=== PATIENT | male | born 1985 | race African-American/Black ===

== ENCOUNTER 2018-12-05 08:01 | Emergency (ER) | payer OTHER, SELFPAY ==
[2018-12-05 08:06] VITALS: BP 136/89; PULSE 86; RESP 18; TEMP 37.3; O2SAT 96; BMI 32.1
--- NOTE | 2018-12-05 08:16 | ED.URI ---
HPI - URI/Sore Throat General Chief Complaint: Upper Respiratory Symptoms Stated Complaint: PAIN ALL OVER,SORE THROAT Time Seen by Provider: 12/05/18 08:07 Source: patient and RN notes reviewed Mode of arrival: ambulatory Limitations: no limitations History of Present Illness HPI Narrative: Patient is a 33-year-old male presenting with sore throat and body aches ongoing for the last 3 days. Progressively getting worse. He is also complaining of left ear pain. He is currently afebrile and did not take any antipyretics prior to arrival. He is able to swallow and manage his secretions but does have pain. Influenza up-to-date. MD Complaint: fever, cough and sore throat Onset (ago): day(s) (3) Relieving factors: nothing Exacerbating factors: nothing Related Data Home Medications Medication Instructions Recorded Confirmed metoprolol succinate 50 mg PO DAILY 12/05/18 12/05/18 Previous Rx's Medication Instructions Recorded amoxicillin 500 mg PO BID #14 cap 12/05/18 Allergies Allergy/AdvReac Type Severity Reaction Status Date / Time No Known Drug Allergies Allergy Verified 12/05/18 08:16 Review of Systems Review of Systems ROS Unobtainable: All systems reviewed & are unremarkable except as noted in HPI and below Constitutional Reports body ache(s) and Reports fever(s) Eyes Denies change in vision, Denies eye discharge, Denies irritation and Denies loss of vision ENT Ears, Nose, Mouth, and Throat: Reports as per HPI, Reports otalgia ( Left) and Reports sore throat Cardiovascular Denies chest pain, Denies irregular heart rhythm, Denies lightheadedness, Denies palpitations, Denies dyspnea, Denies dyspnea on exertion and Denies orthopnea Respiratory Denies cough, Denies dyspnea, Denies dyspnea on exertion and Denies wheezing Gastrointestinal Gastrointestinal: Denies abdominal pain, Denies change in bowel habits, Denies diarrhea, Denies nausea and Denies vomiting Musculoskeletal Denies back pain, Denies muscle weakness, Denies numbness and Denies tingling Integumentary/Breasts Denies pruritus, Denies erythema, Denies rash and Denies wounds Neurologic Denies loss of vision, Denies numbness and Denies tingling Endocrine Denies palpitations Allergic/Immunologic Denies wheezing PFSH Medical History History of irregular heartbeat (Chronic) Social History Smoking Status: Current every day smoker alcohol intake: never substance use type: does not use Social History Smoking Status: Current every day smoker alcohol intake: never substance use type: does not use Exam Initial Vital Signs Initial Vital Signs: Vital Signs Temperature 99.2 F 12/05/18 08:06 Pulse Rate 86 12/05/18 08:06 Respiratory Rate 18 12/05/18 08:06 Blood Pressure 136/89 12/05/18 08:06 Pulse Oximetry 96 12/05/18 08:06 GENERAL: Well-appearing, well-nourished and in no acute distress. HEENT: Head atraumatic,EOMI, pupils reactive, face symmetric, neck is supple EARS: Tympanic membranes visualized, no erythema or bulging, no hemotympanum] PHARYNX: Erythematous exudative tonsils no uvula swelling or deviation airway patent CARDIOVASCULAR: Regular rate and rhythm without murmurs, rubs or gallops. RESPIRATORY: Breath sounds equal bilaterally, no wheezes rales or rhonchi. ABDOMEN: Soft, nontender. Normoactive bowel sounds all 4 quadrants. No guarding or rebound. EXTREMITIES: Normal range of motion, no clubbing or edema. Neurovascularly intact NEUROLOGICAL: Alert and oriented x4. SKIN: Warm, dry, no laceration, no petechiae, no rashes or lesions. Course Orders Ordered: ED Orders 12/05/18 08:10 Influenza A and B by PCR Rapid Stat Vital Signs - 8 hr 12/05/18 08:06 12/05/18 09:15 Temperature 99.2 F Pulse Rate 86 85 Respiratory Rate 18 20 Blood Pressure 136/89 134/89 Pulse Oximetry 96 96 MDM - URI/Sore Throat Lab Data Lab Results 12/05/18 Range/Units 08:10 Influenza A & B (PCR) Negative (Negative) Point of Care Testing Rapid Strep A Negative [facility] Narrative Medical decision making narrative: Strep is negative however tech said it was run twice in got some inconclusive results. Based on patient's symptoms as I believe this patient to have strep. He has no fatigue it has only been ongoing for 2-3 days at this time I do not think mono. Will treat for strep pharyngitis. Discharge Plan Departure Patient Disposition: Home Clinical Impression: Pharyngitis Qualifiers: Pharyngitis/tonsillitis etiology: unspecified etiology Qualified Code(s): J02.9 - Acute pharyngitis, unspecified Discharge Date/Time: 12/05/18 09:15 Interventions: ED Discharge Assessment Last Done: 12/05/18 09:15 Instructions: DI for Pharyngitis/Tonsillopharyngitis -- Adult Activity Restrictions/Additional Instructions: *You have been diagnosed with pharyngitis *What to do: Influenza is negative today. Increase fluids rest *Continue to take medications as directed Amoxicillin 500 mg twice a day for 7 days *Follow up with your primary care provider in 2-3 days *Return to ER if you should have increasing throat pain, difficulty swallowing, decreased oral intake or any new, worsening or concerning symptoms Prescriptions: New amoxicillin 500 mg capsule 500 mg PO BID Qty: 14 RF: 0 No Action metoprolol succinate 50 mg Tablet Extended Release 24 Hr 50 mg PO DAILY RF: 0 Referrals: [facility] [Provider Group] Stand Alone Forms: Work Release Note
[2018-12-05 08:40] LABS: Influenza A and B by PCR Rapid Negative (Negative)
[2018-12-05 09:15] VITALS: BP 134/89; PULSE 85; RESP 20; O2SAT 96
== END 2018-12-05 09:15 | disposition home or self-care (01) ==
PROVIDERS: Emergency Provider Emergency Medicine
DX: J02.9 Acute pharyngitis, unspecified (principal)
CPT/HCPCS: 87400; 87880; 99282; 99283

== ENCOUNTER → 2022-05-27 08:35 | Outpatient (CLI) | payer OTHER, SELFPAY ==
--- NOTE | 2022-05-27 | DI.MRI.S_ITS ---
PROCEDURE: MR KNEE RT WO CON INDICATIONS: RIGHT KNEE PAIN TECHNIQUE: Noncontrast sagittal PD fast spin echo and T2 fast spin echo with fat saturation, sagittal 3-D FLASH with fat saturation; coronal T1 spin echo and PD fast spin echo with fat saturation, and axial PD fast spin echo with fat saturation through the knee. COMPARISON: [facility], MR, MR KNEE RIGHT WITHOUT CONTRAST, 08/02/2018, 8:52. FINDINGS: Image quality: Excellent. Menisci: The medial and lateral menisci demonstrate normal morphology and internal signal. The meniscal root ligaments appear intact. Cruciate ligaments: The anterior and posterior cruciate ligaments appear intact. Medial structures: Low-grade proximal MCL sprain near its femoral insertion is seen. The posterior oblique ligament, semimembranosus tendon insertions, oblique popliteal ligament, and meniscocapsular junction appear intact. Visualized portions of the pes anserinus tendons appear normal. No abnormal bursal fluid. Lateral structures: The lateral collateral ligament, long and short heads of the biceps femoris tendon appear intact. The popliteus tendon appears normal; the popliteofibular ligament appears intact. Iliotibial band appears normal. Anterior structures: The quadriceps and patellar tendons appear intact. Patellar alignment is normal. No femoral trochlear dysplasia or ventral trochlear prominence. No edema in the infrapatellar fat pad. Bones and cartilage: No bone marrow contusions or fractures. Mild osteoarthritis and low to moderate grade chondromalacia in medial and lateral femoral tibial compartments are seen. Moderate grade chondromalacia involving apex of patella cartilage is also noted. Joint space: There is moderate knee joint fluid. There is a tiny Arana's cyst. Normal appearing synovial plicae are incidentally noted. IMPRESSION: 1. No evidence of focal meniscal tear. 2. Cruciate ligaments are intact. Low-grade proximal MCL sprain. 3. 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 No fracture or dislocation. 4. Moderate joint effusion and tiny popliteal cyst. No gross loose bodies. Dictated by: Abram Tate M.D. on 05/27/2022 at 10:50 Approved by: Abram Tate M.D. on 05/27/2022 at 10:53
== END ==
PROVIDERS: PCP Nurse Practitioner Family; Referring Provider Physician Assistant; Visit Provider Physician Assistant
DX: S83.411A Sprain of medial collateral ligament of right knee, initial encounter (principal); M17.11 Unilateral primary osteoarthritis, right knee; M22.41 Chondromalacia patellae, right knee; M25.461 Effusion, right knee
CPT/HCPCS: 73721